=== PATIENT | female | born 1955 | race Caucasian/White ===

== ENCOUNTER → 2016-06-14 | Outpatient (CLI) | payer BC | LOC: BRMIMAGING 08:30 | PROVIDERS: ATTEND Physician Assistant Medical | DX: M81.0 Age-related osteoporosis without current pathological fracture (principal); Z82.62 Family history of osteoporosis ==

== ENCOUNTER → 2017-08-23 | Outpatient (CLI) | payer BC | LOC: FIMAGING 08:08 | PROVIDERS: ATTEND Physician Assistant Medical | DX: Z12.31 Encounter for screening mammogram for malignant neoplasm of breast (principal) ==

== ENCOUNTER → 2018-01-22 | Outpatient (CLI) | payer BC | LOC: FIMAGING 09:22 | PROVIDERS: ATTEND Physician Assistant Medical | DX: Z13.820 Encounter for screening for osteoporosis (principal); M81.0 Age-related osteoporosis without current pathological fracture ==

== ENCOUNTER → 2018-10-08 | Outpatient (CLI) | payer BC | LOC: FIMAGING 08:20 ==